=== PATIENT | female | born 1960 ===

== ENCOUNTER 2019-01-21 15:32 | Emergency (ER) | payer MEDICAID ==
[2019-01-21 15:36] VITALS: BMI 31.1
[2019-01-21 15:57] VITALS: RESP 18; O2SAT 100
[2019-01-21] MEDS ORDERED: DiphenhydrAMINE 50 mg/ml Inj IVP STA (15:57)
[2019-01-21] MEDS ORDERED: DiphenhydrAMINE 50 mg/ml Inj ONE (16:24)
--- NOTE | 2019-01-21 16:45 | C.PDOC ---
History Of Present Illness 58 y/o female with a PMHx of HTN presents to the ED complaining of a left-sided headache with gradual onset since this morning. No thunder clap. This is not the worst headache of her life. Patient has not taken any medications today for symptom relief. States her left eye vision is somewhat blurred, however she has had similar symptoms in the past with headaches. She saw her eye doctor, Dr. Gonzalez, a few weeks ago and states the exam was normal. Otherwise patient denies any nausea, vomiting, chest pain, SOB, dizziness, fevers, neck pain or stiffness. Time Seen by Provider: 01/21/19 15:46 Chief Complaint (Nursing): High Blood Pressure History Per: Patient History/Exam Limitations: no limitations Onset/Duration Of Symptoms: Hrs Current Symptoms Are (Timing): Still Present Associated Symptoms: Blurred Vision, Headache Past Medical History Reviewed: Historical Data, Nursing Documentation, Vital Signs Vital Signs: Last Vital Signs Temp 97.9 F 01/21/19 15:38 Pulse 90 01/21/19 16:35 Resp 18 01/21/19 15:38 BP 184/120 H 01/21/19 15:38 Pulse Ox 100 01/21/19 15:38 - Medical History PMH: Arthritis, HTN, Rheumatoid Arthritis Family History: States: Unknown Family Hx - Social History Hx Alcohol Use: No Hx Substance Use: No - Immunization History Hx Tetanus Toxoid Vaccination: No Hx Influenza Vaccination: Yes Hx Pneumococcal Vaccination: No Review Of Systems Except As Marked, All Systems Reviewed And Found Negative. Constitutional: Negative for: Fever, Chills Eyes: Positive for: Vision Change (left eye blurred vision). Negative for: Pain ENT: Negative for: Nose Discharge, Nose Congestion Cardiovascular: Negative for: Chest Pain, Palpitations Respiratory: Negative for: Shortness of Breath Gastrointestinal: Negative for: Nausea, Vomiting, Abdominal Pain, Diarrhea Musculoskeletal: Negative for: Neck Pain Neurological: Positive for: Headache (left-sided). Negative for: Weakness, Numbness, Change in Speech, Dizziness Physical Exam - Physical Exam Appears: Non-toxic, No Acute Distress Skin: Normal Color, Warm, Dry Head: Atraumatic, Normacephalic, No Tenderness (No temporal artery tenderness) Eye(s): bilateral: Normal Inspection, PERRL, EOMI, Other (Normal fundoscopic exam) Oral Mucosa: Moist Neck: Normal ROM, No Midline Cervical Tenderness, Supple, Other (No carotid bruit) Chest: Symmetrical Cardiovascular: Rhythm Regular, No Murmur Respiratory: Normal Breath Sounds, No Rales, No Rhonchi, No Wheezing Gastrointestinal/Abdominal: Soft, No Tenderness, No Distention Extremity: Bilateral: Atraumatic, Normal Color And Temperature, Normal ROM Neurological/Psych: Oriented x3, Normal Speech, Normal Cognition, Normal Cranial Nerves, Other (No focal deficits) Gait: Steady ED Course And Treatment - Laboratory Results Result Diagrams: 01/21/19 16:53 01/21/19 16:53 O2 Sat by Pulse Oximetry: 100 (RA) Pulse Ox Interpretation: Normal - CT Scan/US CT Head Other Rad Studies (CT/US): Read By Radiologist, Radiology Report Reviewed CT/US Interpretation: Accession No. : [id number]. Patient Name / ID : KEVIN JOINER / [id number]. Exam Date : 01/21/2019 16:42:08 ( Approved ). Study Comment : Sex / Age : F / 58Y. Creator : Joanie Green. Dictator : Kevin Lehman MD. Diorama Model Maker : Molecular Biology Director : Kevin Lehman MD. Approver2 : Report Date : 01/21/2019 17:33:13. My Comment : . Date of service: 01/21/2019. PROCEDURE: CT HEAD WITHOUT CONTRAST. HISTORY: Headache. COMPARISON: None available. TECHNIQUE: Axial computed tomography images were obtained through the head/brain without intravenous contrast. Radiation dose: Total exam DLP = 961.01 mGy-cm. This CT exam was performed using one or more of the following dose reduction techniques: Automated exposure control, adjustment of the mA and/or kV according to patient size, and/or use of iterative reconstruction technique. FINDINGS: HEMORRHAGE: No intracranial hemorrhage. BRAIN: No mass effect or edema. No atrophy. Mild periventricular white matter lucency with scattered patchy foci of subcortical white matter lucency consistent with microvascular ischemic change. No evidence of acute infarct. VENTRICLES: Unremarkable. No hydrocephalus. CALVARIUM: Unremarkable. PARANASAL SINUSES: Unremarkable as visualized. No significant inflammatory changes. MASTOID AIR CELLS: Unremarkable as visualized. No inflammatory changes. OTHER FINDINGS: None. IMPRESSION: Mild chronic white matter ischemic change. No intracranial mass, hemorrhage or evidence of acute infarct. Medical Decision Making Medical Decision Making: Impression: Headache Discussed with Dr. Gonzalez, who confirms that eye exam was normal. He feels patients blood pressure may be contributory to symptoms. Plan: - CMP - CBC - ESR - 10 mg IV Reglan - 25 mg IV Benadryl - Pending Head CT 18:11 CT resulted, and is negative. Still pending chemistry. 18:26 Labs resulted. ESR 10. No acute abnormalities. Findings reviewed and discussed with patient. All questions answered. On re-examination, patient is resting comfortably in no acute distress. Patient reports improvement of symptoms. Patient feels comfortable going home and will be discharged. Patient given follow up instructions. Instructed to return to ER if symptoms worsen or new symptoms arise. Disposition Counseled Patient/Family Regarding: Studies Performed, Diagnosis, Need For Followup - Disposition Referrals: [facility] [Outside] Hamilton Lagunas MD [Staff Provider] - Disposition: HOME/ ROUTINE Disposition Time: 18:25 Condition: STABLE Additional Instructions: follow up with your doctor within 2 days call to make an appointment take medication as prescribed return to ER if symptoms worsens or progress Instructions: Tension Headache Forms: [facility] (Greenlandic), General Discharge Instructions - POA Present On Arrival: None - Clinical Impression Clinical Impression: Headache - Scribe Statement The provider has reviewed the documentation as recorded by the Yulissa Jimenez Provider Attestation: All medical record entries made by the Ninfaibrosa were at my direction and personally dictated by me. I have reviewed the chart and agree that the record accurately reflects my personal performance of the history, physical exam, medical decision making, and the department course for this patient. I have also personally directed, reviewed, and agree with the discharge instructions and disposition.
[2019-01-21 17:00] LABS: BASO # 0.1 K/uL (0.0-0.2); BASO % 0.8 % (0.0-2.0); EOS # 0.2 K/uL (0.0-0.7); EOS % 1.9 % (0.0-4.0); HEMOGLOBIN 14.9 g/dL (11.0-16.0); LYMPH # 2.5 K/uL (1.0-4.3); LYMPH % 31.9 % (20.0-40.0); MEAN CORPUSCULAR HEMOGLOBIN 26.1 pg (27.0-31.0); MEAN PLATELET VOLUME 8.7 fL (7.2-11.7); MONO # 0.8 K/uL (0.0-0.8); MONO % 10.2 % (0.0-10.0); NEUT # 4.4 K/uL (1.8-7.0); NEUT % 55.2 % (50.0-75.0); RBC 5.72 Mil/uL (3.80-5.20); RED CELL DISTRIBUTION WIDTH 15.1 % (11.5-14.5); WHITE BLOOD COUNT 7.9 K/uL (4.8-10.8)
[2019-01-21 17:28] LABS: BLOOD UREA NITROGEN 17 mg/dL (7-17); CALCIUM 9.4 mg/dl (8.6-10.4); GFR NON-AFRICAN AMERICAN > 60
[2019-01-21 17:41] VITALS: TEMP 98.6
--- NOTE | 2019-01-21 17:54 | CT ---
Date of service: 01/21/2019 PROCEDURE: CT HEAD WITHOUT CONTRAST. HISTORY: Headache COMPARISON: None available. TECHNIQUE: Axial computed tomography images were obtained through the head/brain without intravenous contrast. Radiation dose: Total exam DLP = 961.01 mGy-cm. This CT exam was performed using one or more of the following dose reduction techniques: Automated exposure control, adjustment of the mA and/or kV according to patient size, and/or use of iterative reconstruction technique. FINDINGS: HEMORRHAGE: No intracranial hemorrhage. BRAIN: No mass effect or edema. No atrophy. Mild periventricular white matter lucency with scattered patchy foci of subcortical white matter lucency consistent with microvascular ischemic change. No evidence of acute infarct. VENTRICLES: Unremarkable. No hydrocephalus. CALVARIUM: Unremarkable. PARANASAL SINUSES: Unremarkable as visualized. No significant inflammatory changes. MASTOID AIR CELLS: Unremarkable as visualized. No inflammatory changes. OTHER FINDINGS: None. IMPRESSION: Mild chronic white matter ischemic change. No intracranial mass, hemorrhage or evidence of acute infarct.
[2019-01-21 18:14] LABS: ALB/GLOB RATIO 1.4 (1.0-2.1); ALBUMIN 4.5 g/dL (3.5-5.0); ALT/SGPT 14 U/L (9-52); AST/SGOT 35 U/L (14-36)
[2019-01-21 19:09] VITALS: BP 160/89; PULSE 76
== END 2019-01-21 19:09 | disposition home or self-care (01) ==
LOC: C.ER 15:32
DX: R51 Headache (principal)
CPT/HCPCS: 70450; 80053; 85025; 85651; 96374; 96375; 99285; J1200; J2765